=== PATIENT | male | born 1950 | race Hispanic/Latino ===

== ENCOUNTER 2017-10-14 06:41 | Day surgery (SDC) | payer MEDICARE, BC ==
--- NOTE | 2017-10-14 07:43 | CP.SDSHP ---
Same Day Surgery H & P - History Proposed Procedure: COLONSCOPY Pre-Op Diagnosis: SEE NOTES - Previous Medical/Surgical History Misc: Other Pain: 4.Moderate Pain Previous Surgical History: HERNIATED SPINE DISC SX. - Allergies Allergies: Allergies No Known Allergies Allergy (Verified 10/14/17 06:50) - Physical Exam General Appearance: N Vital Signs: Vital Signs 10/14/17 06:50 Temperature 97.1 F L Pulse Rate 80 Respiratory 20 Rate Blood Pressure 127/76 O2 Sat by Pulse 98 Oximetry Mental Status: Alert & Oriented x3 Neuro: WNL Heart: WNL Lungs: WNL GI: Other - {Optional Preform as Required} Breast: WNL Abdomen: Other Rectal: Other Integument: WNL : WNL Ortho: Other ENT: WNL - Impression Pt. Evaluated Today:Candidate for Anesthesia & Procedure: Yes - Date & Time Time: 07:42 Short Stay Discharge - Short Stay Discharge Admitting Diagnosis/Reason for Visit: ABNORMAL WEIGHT LOSS Disposition: HOME/ ROUTINE
[2017-10-14] MEDS ORDERED: Propofol 10 mg/ml Inj (20 ML) ONE (08:34)
[2017-10-14 08:58] VITALS: TEMP 97.5
[2017-10-14] MEDS ORDERED: Belladonna-Phenobarbital PO ONE (09:10)
[2017-10-14 09:34] VITALS: O2SAT 100
[2017-10-14 09:47] VITALS: BP 138/81; PULSE 56; RESP 14
== END 2017-10-14 09:45 | disposition home or self-care (01) ==
LOC: C.ENDO 06:41
PROVIDERS: ATTEND Specialist
DX: K57.30 Diverticulosis of large intestine without perforation or abscess without bleeding (principal); K64.4 Residual hemorrhoidal skin tags; K64.8 Other hemorrhoids; K52.9 Noninfective gastroenteritis and colitis, unspecified
CPT/HCPCS: 45380; 88305; J2704